=== PATIENT | male | born 1965 | race Caucasian/White ===

== ENCOUNTER → 2024-06-12 | Outpatient (CLI) | payer OTHER | LOC: M PLAIMG 14:16 | PROVIDERS: ATTEND Nurse Practitioner Family | DX: R05.3 Chronic cough (principal); K44.9 Diaphragmatic hernia without obstruction or gangrene ==

== ENCOUNTER 2024-08-26 14:57 | Emergency (ER) | payer OTHER ==
[~2024-08-26] VITALS: Ht 180.3 cm; Wt 103.0 kg
[2024-08-26 15:02] VITALS: BP 148/76; TEMP 98.1; O2SAT 95
[2024-08-26] MEDS ORDERED: AMLO25TA PO (15:07)
[2024-08-26] MEDS ORDERED: ASPI81CH33 PO (15:07)
[2024-08-26] MEDS ORDERED: ALLO100T PO (15:07)
[2024-08-26] MEDS ORDERED: OMEP10CASR PO (15:07)
[2024-08-26] MEDS ORDERED: LOSA25TA13 PO (15:07)
[2024-08-26] MEDS ORDERED: BENZ200C70 PO (18:07)
== END 2024-08-26 18:33 | disposition home or self-care (01) ==
LOC: M ED 14:57
DX: J06.9 Acute upper respiratory infection, unspecified (principal); B97.81 Human metapneumovirus as the cause of diseases classified elsewhere; K21.9 Gastro-esophageal reflux disease without esophagitis; E78.5 Hyperlipidemia, unspecified; I10 Essential (primary) hypertension; Z79.82 Long term (current) use of aspirin; Z79.899 Other long term (current) drug therapy

== ENCOUNTER → 2025-01-02 | Outpatient (CLI) | payer OTHER ==
[~2025-01-02] MED LIST: ALLO100T PO; AMLO25TA PO; ASPI81CH33 PO; BENZ200C70 PO; E-Z-GAS II EFFERVESCENT PACKET (SODIUM BICARB./CITRIC ACID/SIMETHICONE) As Ordered ONE; E-Z-HD 98% w/w 340 GM SUSP BTL As Ordered ONE; E-Z-PAQUE 96% w/w SUSP 176 GM BTL As Ordered ONE; LOSA25TA13 PO; OMEP10CASR PO
== END ==
LOC: M RAD 10:48
PROVIDERS: ATTEND Nurse Practitioner Adult Health
DX: R93.89 Abnormal findings on diagnostic imaging of other specified body structures (principal)